=== PATIENT | female | born 1945 | race Caucasian/White ===

== ENCOUNTER 2021-10-29 11:04 | Outpatient (CLI) | payer OTHER, SELFPAY ==
--- OUTSIDE RECORDS SUMMARY | 2021-09-24 10:30 | XMS_ITS | Continuity of Care Document ---
:1945 Author Care Team Providers Name Role Phone CATERINA Park Attending Physician CATERINA Park Primary Care Physician Chief Complaint and Reason for Visit Chief Complaint Closed Head Injury Reason for Visit [id number] Health Concerns Concerns Review chart for current health concerns Allergies, Adverse Reactions, Alerts Allergen Type Severity Reaction Last Verified Status Updated Codeine Allergy Moderate nausea,vomi September 16, Yes Active tting 2021 Dextromethorphan Adverse Moderate diarrhea September 16, Yes Ac tive Reaction 2021 Guaifenesin Adverse Moderate diarrhea September 16, Yes Active Reaction 2021 Yellow Dye Adverse Moderate diarrhea September 16, Yes Active Reaction 2021 Social History Smoking Status Status Start Date End Date Date of Observat ion Never smoked tobacco September 16, 2021 1:42pm (finding) Observation Status Observation Response Date of Response Nonsmoker March 19, 2019 1:48pm Does not use illicit drugs March 1:48pm Does not drink alcohol March 19 1:48pm September 16, 2021 1:26 pm Additional Data Assigned Sex Female Problems Active Problems Medical Problem Onset Date Status Hypertension November 05, 2008 Active Hyperlipidemia April 28, 2011 Active Diverticulosis June 24, 2010 Active Plantar fasciitis December 21, 2012 Active Elevated liver enzymes 2020 Active Closed head injury 2021 Resolved S/P tonsillectomy and November 05, 2008 Active adenoidectomy Hx of appendectomy November 05, 2008 Active H/O lumbosacral spine surgery November 05, 2008 Active 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, 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 Hx of rotator cuff surgery 2019 Active Medications Medication Status Dose Units Route Directions Qty Days Start End Ins tructions Date Date Ascorbic Acid Active 500 MG OR Daily (Vitamin C) 500 Mg CAP Aspirin Active 1 TABLET PO Daily Atorvastatin Active 20 MG PO Bedtime September for Calcium , cholesterol 2021 1:25pm Calcium/Magne Active 1 EA PO Daily 1000 mg sium (Calcium calciu m, 400 & Magnesium mg mag 750-465 Mg) 1 Tab TAB Cholecalcifer Active 1000 UNIT OR Daily ol (Vitamin D3) 1,000 Unit CAP Hydrochloroth Active 25 MG PO Daily September iazide 2021 1:25pm Metoprolol Active 0.5 TAB PO Twice A Day September ta ke 12.5mg Tartrate , (1/2 tablet ) 2021 2 times per 1:25pm day Vitamin E Active 400 UNIT PO Daily Albuterol Disconti 2 PUFF INH Every 4 1 Februar Septem Sulfate nued Hours as y , dawit (Proair Hfa) needed 2016, 90 Mcg/Puff 3:34pm 2017 INH 8:51am Albuterol/Ipr Disconti 1 NEB NEB Once July atropium nued , 3rd, (Duoneb) 3 2016 2016 Mg/0.5 Mg NEB 12:02pm 12:08p m Ascorbic Acid Disconti 1000 MG PO Daily July (Vitamin C) nued , 1,000 Mg TAB 2013 8:28am Atenolol Disconti 25 MG PO Daily 90 Februar Septem (Tenormin) 25 nued y , adwit Mg TAB 2016, 4:15pm 2016 8:51am Atenolol Disconti 25 MG PO Daily April Februa (Tenormin) 25 nued , ry Mg TAB 2015, 10:13am 2016 4:15pm Atenolol Disconti 25 MG PO Daily 90 Februar Januar (Tenormin) 25 nued y 5th, y Mg TAB 2014, 12:23pm 2015 10:13a m Atenolol Disconti 25 MG PO Daily 90 Februar Februa (Tenormin) 25 nued y , ry Mg TAB 2013 08, 9:10am 2014 12:23p m Atenolol Disconti 25 MG PO Daily 90 Februar Februa (Tenormin) 25 nued y , ry Mg TAB 2012 10, 8:48am 2013 9:10am Atenolol Disconti 25 MG PO Daily Aprilua (Tenormin) 25 nued 26, ry Mg TAB 2011 04, 9:39am 2012 8:48am Atorvastatin Disconti 20 MG PO Bedtime January Calcium nued 15, , 2020 2021 12:49pm 1:25pm Atorvastatin Disconti 20 MG PO Bedtime Octobe Take 1 tablet Calcium nued er r daily for , 18, elevated 2020 2020 cholesterol 4:23pm 2:07pm Atorvastatin Disconti 20 MG PO Bedtime Septemberem T tomasa 1 tablet Calcium nued 4th, dawit daily for 2020, elevated 11:27am 2020 cholesterol 4:23pm Azithromycin Disconti 250-5 MG PO Daily January 50 0 mg x 1 nued 00 , day then 250 2018 2019 mg daily x 4 10:47am 2:36pm days Azithromycin Disconti 250 MG PO As Directed July em 2 TABS ON DAY (Zithromax nued 3rd, dawit ONE THEN 1 Z-Eddie) 250 Mg 2016, TAB DA ANGELA TAB 12:31pm 2016 DAYS 2-5 8:51am Azithromycin Disconti 250 MG [facility] (Zithromax nued er y ONE THEN 1 Z-Eddie) 250 Mg , , TAB DA ANGELA TAB 2015 2016 DAYS 2-5 11:05am 9:43am Cholecalcifer Disconti 1000 MG PO Daily ol (Vitamin nued y D) 400 Iu TAB 2016 9:43am Diclofenac Disconti 50 MG PO Three Times 60 Decembe Febr ua Sodium nued A Day as r 11, ry needed 2013 08, 3:12pm 2014 11:55a m Diphtheria/Te Disconti 0.5 ML IM Once Apriluar tanus/Acell nu, y Pertussis 2009, (Adacel) 0.5 2:07pm 2009 Ml INJ 2:13pm Fish Oil Disconti 1000 MG PO y 2015 9:33am Folic Acid Disconti 800 MCG PO Daily ed ry 2011 8:38am Hydrochloroth Disconti 25 MG PO Daily September iazide nued , 2021 11:31am 1:25pm Hydrochloroth Disconti 25 MG PO Daily 90 September iazide nued , 2020 10:47am 11:31a m Hydrochloroth Disconti 25 MG PO Daily 90 June iazide nued 2020 1:37pm 10:47a m Hydrochloroth Disconti 25 MG PO Daily 90 November iazide nued , 2019 1:35pm 1:37pm Hydrochloroth Disconti 25 MG PO Daily 90 August iazide nued 2019 10:11am 1:35pm Hydrochloroth Disconti 25 MG PO Daily 90 June iazide nued 2018 3:41pm 10:11a m Hydrochloroth Disconti 25 MG PO Daily 90 Februar June iazide nued y 2017 2:50pm 3:41pm Hydrochloroth Disconti 25 MG PO Daily 90 Februar Februa iazide nued y , ry 2016, 4:14pm 2017 2:50pm Hydrochloroth Disconti 25 MG PO Daily April Februa iazide nued , ry 2015, 10:13am 2016 4:14pm Hydrochloroth Disconti 25 MG PO Daily 90 Februar Januar iazide nued y , y 2014, 12:23pm 2015 10:13a m Hydrochloroth Disconti 25 MG PO Daily 90 Februar Februa iazide nued y , ry 2013 08, 9:10am 2014 12:23p m Hydrochloroth Disconti 25 MG PO Daily 90 Februar Februa iazide nued y , ry 2012 10, 8:48am 2013 9:10am Hydrochloroth Disconti 25 MG PO Daily 90 Februar Februa iazide nued y , ry 2011 04, 2:25pm 2012 8:48am Hydrochloroth Disconti 25 MG PO Daily 100 April Februa iazide nued , ry 2010 14, 10:21am 2011 2:25pm Hydrochloroth Disconti 25 MG PO Daily April iazide nued , 2009, 2:56pm 2010 10:21a m Hydrochloroth Disconti 12.5 MG PO Daily 100 April iazide nued , 2009, 2:07pm 2009 2:56pm Hydrochloroth Disconti 12.5 MG PO Daily October iazide nued , 2008, 11:06am 2009 2:07pm Hydrochloroth Disconti 12.5 MG PO Daily 100 uaoctober iazide nued y , 2008 3:24pm 11:06a m Hydrocodone-A Disconti 1 TAB PO Every 4 Febru a cetaminophen nued Hours as er ry (Vicodin) 5 needed , , Mg/300 Mg TAB 2013 2014 9:04am 11:55a m Metoprolol Disconti 0.5 TAB PO Twice A Day September take 12.5mg Tartrate nued , (1/2 tablet ) 2021 2021 2 times per 11:31am 1:25pm day Metoprolol Disconti 0.5 TAB PO Twice A Day September take 12.5mg Tartrate nued , (1/2 tablet ) 2020 2021 2 times per 10:47am 11:31a day m Metoprolol Disconti 0.5 TAB PO Twice A Day June take 12.5mg Tartrate nued , (1/2 tablet ) 2020 2020 2 times per 2:30pm 10:47a day m Metoprolol Disconti 0.5 TAB PO Twice A Day November take 12.5mg Tartrate nued , , (1/2 tablet ) 2019 2020 2 times per 1:35pm 2:30pm day Metoprolol Disconti 0.5 TAB PO Twice A Day August take 12.5mg Tartrate nued , , (1/2 tablet ) 2019 2019 2 times per 10:11am 1:35pm day Metoprolol Disconti 0.5 TAB PO Twice A Day June take 12.5mg Tartrate nued , (1/2 tablet ) 2018 2019 2 times per 3:41pm 10:11a day m Metoprolol Disconti 0.5 TAB PO Twice A Day 90 Februar Lalit h take 12.5mg Tartrate nued y , (1/2 tabl et ) 2017 2018 2 times per 2:50pm 3:41pm day Metoprolol Disconti 0.5 TAB PO Twice A Day 90 Febr ua take 12.5mg Tartrate nued er ry (1/2 tablet ) , 2 times per 2016 2017 day 9:29am 2:50pm Metoprolol Disconti 0.5 TAB PO Twice A Day November m take 12.5mg Tartrate nued (1/2 tablet ) 2016, 2 times per 4:42pm 2016 day 9:29am Pneumococcal Disconti 0.5 ML IM Once Aprilr Polyvalent nued , y Vaccine 2015, (Prevnar 13) 9:59am 2015 0.5 Ml INJ 10:03a m Potassium Disconti Februa Glucon nued ry 2012 8:13am Prednisone Disconti 20 MG PO Daily 5 January nued 2017 10:47am 2:36pm Prednisone Disconti 20 MG PO Twice A Day 10 July nued , dawit 2016, 12:31pm 2016 8:51am Prednisone Disconti 20 MG PO Daily 5 July nued y 2016 3:34pm 11:44a m Prednisone Disconti 20 MG PO Twice A Day 10 Apru ar nued er y 2015 11:05am 9:43am Simvastatin Disconti 1 TABLET PO Bedtime September (Zocor) 40 Mg nued , TAB 2020 2020 10:47am 11:27a m Simvastatin Disconti 1 TABLET PO Bedtime June (Zocor) 40 Mg nued , , TAB 2020 2020 12:38pm 10:47a m Simvastatin Disconti 1 TABLET PO Bedtime August (Zocor) 40 Mg nued , TAB 2019 2020 2:07pm 12:38p m Simvastatin Disconti 1 TABLET PO Bedtime July (Zocor) 40 Mg nued , TAB 2018 2019 11:10am 2:07pm Simvastatin Disconti 1 TABLET PO Bedtime 90 uar July (Zocor) 40 Mg nued y , , TAB 2017 2018 2:50pm 11:10a m Simvastatin Disconti 1 TABLET PO Bedtime July Februa (Zocor) 40 Mg nued , ry TAB 2016, 8:33am 2017 2:50pm Simvastatin Disconti 1 TABLET PO Bedtime April (Zocor) 40 Mg nued , , TAB 2015 2016 10:13am 8:33am Simvastatin Disconti 1 TABLET PO Bedtime 90 Februar Januar (Zocor) 40 Mg nued y , y TAB 2014, 12:23pm 2015 10:13a m Simvastatin Disconti 1 TABLET PO Bedtime 90 Februar Februa (Zocor) 40 Mg nued y 11, ry TAB 2013 5th, 7:29pm 2014 12:23p m Simvastatin Disconti 1 TABLET PO Bedtime April Februa (Zocor) 40 Mg nued , ry TAB 2013 11, 12:31pm 2013 7:29pm Simvastatin Disconti 1 TABLET PO Bedtime 90 Februar Januar (Zocor) 40 Mg nued y , y TAB 2012, 8:48am 2013 12:31p m Simvastatin Disconti 1 TABLET PO Bedtime 90 Februar Februa (Zocor) 40 Mg nued y 14, ry TAB 2011 04, 2:25pm 2012 8:48am Simvastatin Disconti 1 TABLET PO Bedtime 90 April Februa (Zocor) 40 Mg nued , ry TAB 2010 14, 10:21am 2011 2:25pm Simvastatin Disconti 1 TABLET PO Bedtime 30 Februar Januar (Zocor) 40 Mg nued y 9, y TAB 2009, 12:10pm 2010 10:21a m Immunizations Immunization Event Date Not Given 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 Yarns Lot Vac cine Reason Number Number Informatio n Statement (VIS) Deta il COVID-19 ModernMay 04 MODERNA [id number] 2020 COVID-19 Moderna June 19 MODERNA [id number] 2020 Herpes Zoster September 152010 Influenza December 022009 Influenza January 042011 Influenza January 032015 Influenza January 042017 Prevnar Adult April 03 ARACELY [id number] 2015 Pneumovax Adult April 102009 Shingrix January 012017 Shingrix April 042018 Tetanus/Diptheri February 01 a 1997 Tdap April 03 sanofipasteur [id number] (adolescent/adul 2009 t) Tdap January 02 [id number] (adolescent/adul 2011 t) Procedures Procedure Date Performed Status Future Lab Clinic September 01, 2021 completed LIPID PANEL September 13, 2021 completed COMPREHEN METABOLIC PANEL September 13, 2021 completed Relevant Diagnostic Tests and/or Laboratory Data Laboratory Results Test Date/Time Result Interpretation Reference Result Comment Performing Site Range Random September 13 60-115 [facility] Glucose 2021 [address] [facility] 10:27am [facility] [address] Blood Urea September 13 7-30 [facility] Nitrogen 2021 1999 [facility] 10:27am [facility] [address] Creatinine September 13, 0.6 0.5-1.5 [facility] 2021 [address] [facility] 10:27am [facility] [address] Estimated September 13, Patient [facility] Creatinine 2021 height/weight 1999 [facility] Clearance 10:27am data not [facility] [address] available Sodium Level September 13, 138 135-149 [facility] 2021 1999 [facility] 10:27am [facility] [address] Potassium September 13, 4.1 3.6-5.1 [facility] Level 2021 1999 [facility] 10:27am [facility] [address] Chloride September 13, 98 96-114 [facility] Level 2021 1999 [facility] 10:27am [facility] [address] Carbon September 13, 32 20-32 [facility] Dioxide 2021 1999 [facility] Level 10:27am [facility] [address] Calcium September 13, 9.6 8.4-10.6 [facility] Level 2021 1999 [facility] 10:27am [facility] [address] Cholesterol Kellie 13th, 171 90-199 [facility] Lab Level 2021 1999 [facility] 10:27am [place] [address] Triglyceride September 13, 128 40-149 [facility] s Level 2021 1999 [facility] 10:27am [facility] [address] Total September 13, 6.6 6.0-8.3 The use of [facility] Protein 2021 patti Daniels [address] [facility] 10:27am bone [place] [address] stimulant used to treat thrombocytopen ia and aplastic anemia, interferes with this measurement of total protein. A 5% bias has been observed. Albumin September 13, 3.9 3.3-5.0 [facility] 2021 1999 [facility] 10:27am [place] [address] Total September 13, 1.4 0.1-1.5 [facility] Bilirubin 2021 1999 [facility] 10:27am [facility] [address] Aspartate September 13, 29 12-35 [facility] Amino Transf [address] (AST/SGOT) 10:27am [facility] [address] Alanine September 13, 20 4-35 [facility] Aminotransfe [address]ase 10:27am [facility] [address] (ALT/SGPT) Alkaline September 13, 65 40-150 [facility] Phosphatase 2021 1999 [facility] 10:27am [facility] [address] LDL September 13, 70 <100 [facility] Cholesterol 2021 [address] [facility] 10:27am [facility] [address] HDL September 13, 75 >=50 [facility] Cholesterol 2021 [address] [facility] 10:27am [facility] [address] White Blood September 13, 5.9 4.5-11.0 [facility] [place] Count [address] [place] [address] West 10:21am [place] [address] Red Blood September 13, 5.03 4.00-5.20 [facility] [place] Count [address] [place] [address] 10:21am [facility] [address] Hemoglobin September 13, 14.2 12.0-16.0 [facility] [place] [address] [place] [address] West 10:21am [place] [address] Hematocrit September 13, 42.8 33-51 [facility] [place] [address] 10:21am [facility] [address] Mean September 13, 85 80-100 [facility] [address] Volume 10:21am [facility] [address] Mean September 13, 28 26-34 [facility] [address] [place] Hemoglobin 10:21am [facility] [address] Mean September 13, 33 32-36 [facility] 2021 [address] [facility] Hemoglobin 10:21am [facility] [address] Concent Platelet September 13, 300 140-440 [facility] Count 2021 [address] [facility] 10:21am [facility] [address] Vital Signs Vital Reading Result Reference Range Collection Date/ Time Height 64.570 [in_i] September 16, 2021 1:01pm Height 164 cm September 16, 2021 1:01pm Weight 185.00 [lb_av] September 16, 2021 1:01pm Weight 83.003680 kg September 16, 2021 1:01pm Body Temperature 97.7 [degF] September 16, 2021 1:01pm Body Temperature 36.5 Solange September 16, 2021 1:01pm BP Systolic 118 mm[Hg] September 16, 2021 1:01pm BP Diastolic 62 mm[Hg] September 16, 2021 1:01pm Heart Rate 70 /min September 16, 2021 1:01pm Respiratory rate 16 /min September 16, 2021 1:01pm Body surface area 1.90 m2 September 16 1:01pm BMI (Body Mass Index) 31.2 kg/m2 September 16, 2021 1:01pm Advance Directives Advance Directive Response Recorded Date/Time Does Pt have Health Care No April 28 016 10:12am Directive? Has patient completed a Yes September 16, 2021 1:42pm Health Care Directive? Insurance Providers Guarantor Lilliam Dos Santos Address [address] [facility] [address] Contact Info. Home Phone: Payer Policy Id Coverage Id Subscriber's Subscriber Id Effective E xpiration Name Date Date [employer] [id number] Lilliam Dos Santos Choice Encounters Encounter Location(s) Arrival/Admit Date Discharge/Depart Date Provider(s) Registered Clinics September 16, 2021 [facility] 12:45pm Maria Del Rosario DIGGS Office Visit [facility] September 16, 2021 [facility] 12:45pm Maria Del Rosario DIGGS Office Visit [facility] September 13, 2021 [facility] 10:30am Maria Del Rosario DIGGS Registered [place] September 13, 2021 [facility] 10:20am Maria Del Rosario DIGGS Recent Diagnosis Onset Date Assessments 1. Completed annual Medicare wellness visit today 2. Physical exam Reviewed pre visit labs including CBC, CMP, lipid panel, all unremarkableReviewed her Woman's preventative wellness plan.She has a mammogram [id number] with bone density scan, also takes calcium and vitamin-DPolitely declined any further colorectal screening at this time Up-to-date with immunizations 2. Hypertension. Continue with metoprolol and hydrochlorothiazide is prescribed. Follow up annually. Reviewed pre visit labs including a unremarkable CMP 3. Elevated liver function enzymes. Resolved.Reviewed recent CMP, showing continued resolution of LFT elevation. 4. Hyperlipidemia. Lipids are excellent. Reviewed pre visit labs.Plan: Continue with atorvastatin as prescribed. Follow up in 1 year. Plan of Treatment Instructions from visit on: 09/16/21 Please follow the provider's instructions as discussed during your visit. Instructions from visit on: 09/16/21 Please follow the providers instructions as discussed during your visit and follow preventative care plan. Future Tests Future scheduled test information is unavailable Pending Tests Pending diagnostic test information is unavailable Future Visits Future appointment information is unavailable Referrals to Other Providers Reason for Referral Start Provider Provider Contact Provider Address Referral Date Information [facility] Work Phone: GAURI CRAMER CAITLIN Mix PA-C [id number] [facility] [phone] Future Procedures Procedure Name Scheduled Date SCARLET Bilat Mammo Scrn SCARLET Bilat Mammo Scrn Future Medications Future medication information is unavailable Patient Instructions See Additional Instructions Goals Ambulatory Goals Reach or maintain optimal well being.
--- NOTE | 2021-10-29 11:30 | CRLHL7_ITS ---
For Patients: As a result of the Century Cures Act, medical imaging exams and procedure reports are released immediately into your electronic medical record. You may view this report before your referring provider. If you have questions, please contact your health care provider. BILATERAL MAMMOGRAM WITH COMPUTER-AIDED DETECTION AND TOMOSYNTHESIS TECHNIQUE: CC and MLO views were obtained. These mammographic images have been obtained using full-field digital technique. These mammographic images were interpreted with the benefit of computer-aided detection. Breast Tomosynthesis was used in this interpretation. COMPARISON FILM: 09/20/19, 05/18/17, 05/21/15 FINDINGS: There are scattered areas of fibroglandular density IMPRESSION: There is no radiographic evidence for malignancy. ASSESSMENT: BI-RADS Category 1: Negative RECOMMENDATION: Routine screening mammogram in 1 year. A lay language report of this examination will be provided to the patient. Johnathan Watson M.D. Diagnostic Radiologist [email or web address] TATY/Dictated by: Johnathan Watson MD @ 11/01/2021 9:18:00 AM (Electronically Signed)
== END 2021-10-29 11:05 | disposition home or self-care (01) ==
LOC: MAMMO 11:09
PROVIDERS: PCP Physician Assistant Medical; Visit Provider Physician Assistant Medical
DX: Z12.31 Encounter for screening mammogram for malignant neoplasm of breast (principal)
CPT/HCPCS: 77063; 77067

== ENCOUNTER 2022-11-09 08:31 | Outpatient (CLI) | payer OTHER, SELFPAY | END 2022-11-09 08:32 | disposition home or self-care (01) | LOC: NFLDREF 11-10 12:13 | PROVIDERS: PCP Physician Assistant Medical; Referring Provider Physician Assistant Medical; Visit Provider Physician Assistant Medical | DX: Z00.00 Encounter for general adult medical examination without abnormal findings (principal); I10 Essential (primary) hypertension; E78.5 Hyperlipidemia, unspecified; R74.8 Abnormal levels of other serum enzymes | CPT/HCPCS: 80061; 80076; 82947 ==

== ENCOUNTER 2022-12-07 13:17 | Outpatient (CLI) | payer OTHER, SELFPAY ==
--- NOTE | 2022-12-07 14:00 | CRLHL7_ITS ---
For Patients: As a result of the Century Cures Act, medical imaging exams and procedure reports are released immediately into your electronic medical record. You may view this report before your referring provider. If you have questions, please contact your health care provider. DXA BONE MINERAL DENSITY STUDY Current height (in): 66.0. Weight (lb): 190.0. Menopause age: 59. Ethnicity: White. Reason for exam: Osteopenia. 1. Have you had a previous hip or vertebral fracture? No. 2. Have you had any fractures during your adult life which did not result from significant trauma (e.g., auto accident)? No. 3. Did either of your parents have a hip fracture? No. 4. Do you smoke? No. 5. Have you ever taken Glucocorticoids? No. 6. Do you have rheumatoid arthritis? No. 7. Do you have secondary osteoporosis? No. 8. Do you drink 3 or more alcoholic drinks per day? No. 9. Are you being treated for osteoporosis? No. 10. Have you ever taken any of the following medications: Actonel, Evista, Fosamax, Miacalcin, Reclast, Boniva, Forteo, HRT (i.e. estrogen/hormone therapy), Protelos, Prolia, Vitamin D, Calcium, other ??? please specify. ANSWER: Yes, vitamin D, calcium. 11. Do you have any of the following medical conditions: Anorexia or bulimia, asthma or emphysema, end stage renal disease, hyperparathyroidism, any seizure disorders, cancer, inflammatory bowel diseases, hysterectomy, other ??? please specify. ANSWER: No. 12. What was your maximum height (inches)? 66. 13. Do you perform weight bearing exercise regularly? No. 14. Do you regularly consume dairy products? Yes. 15. Do you drink caffeinated beverages? Yes. 16. At what age did your period start? 11. 17. Are you premenopausal? No. 18. How many full term pregnancies have you had? 5. 19. Have you ever missed your period for more than 6 months in a row (not including or menopause)? No. TECHNIQUE: Bone mineral density study was performed using the [employer]. FINDINGS: The results of the study expressed as bone mineral density (BMD) are as follows: Lumbar spine L1 to L4: BMD: 1.186 g/cm2. T-score: 1.3. Z-score: 3.9. Neck Left: BMD: 0.985 g/cm2. T-score: 1.2. Z-score: 3.5. Right: BMD: 0.676 g/cm2. T-score: -1.6. Z-score: 0.7. Total Left: BMD: 0.936 g/cm2. T-score: -0.0. Z-score: 1.9. Right: BMD: 0.796 g/cm2. T-score: -1.2. Z-score: 0.8. IMPRESSION: Osteopenia. *Comparison exams done prior to 09/2019 were performed on different unit, UbiCast. COMPARISON: Compared with scan of 09/09/2020, the bone mineral density has increased by 1.1 percent at the spine and decreased by 1.8 percent at the hip. FRAX 10-year Fracture Risk Major Osteoporotic Fracture: 13 percent Hip Fracture: 2.8 percent Reported Risk Factors: [place] () Neck BMD = 0.676, BMI = 30.7 Johnathan Watson M.D. Diagnostic Radiologist [email or web address] Transcribed: 10:25 am DW/Dictated by: Johnathan Watson MD @ 12/08/2022 9:15:00 AM (Electronically Signed)
== END 2022-12-07 13:18 | disposition home or self-care (01) ==
LOC: RAD 13:18
PROVIDERS: PCP Physician Assistant Medical; Visit Provider Physician Assistant Medical
DX: M85.80 Other specified disorders of bone density and structure, unspecified site (principal); M85.88 Other specified disorders of bone density and structure, other site
CPT/HCPCS: 77080

== ENCOUNTER 2023-10-25 11:02 | Outpatient (CLI) | payer OTHER, SELFPAY ==
--- NOTE | 2023-10-25 11:30 | CRLHL7_ITS ---
For Patients: As a result of the Century Cures Act, medical imaging exams and procedure reports are released immediately into your electronic medical record. You may view this report before your referring provider. If you have questions, please contact your health care provider. BILATERAL SCREENING MAMMOGRAM WITH COMPUTER-AIDED DETECTION AND TOMOSYNTHESIS TECHNIQUE: CC and MLO views were obtained. These mammographic images have been obtained using full-field digital technique. These mammographic images were interpreted with the benefit of computer-aided detection. Breast tomosynthesis was used in this interpretation. COMPARISON FILM: 10/29/21, 09/20/19, 05/18/17. FINDINGS: There are scattered areas of fibroglandular density. IMPRESSION: There is no radiographic evidence for malignancy. ASSESSMENT: BI-RADS Category 1: Negative RECOMMENDATION: Routine screening mammogram in 1 year. A lay language report of this examination will be provided to the patient. JOHNATHAN CHOWDHURY M.D. Diagnostic Radiologist [email or web address] Transcribed: 2:[address]/Dictated by: Johnathan Chowdhury MD @ 10/25/2023 12:53:00 PM (Electronically Signed)
== END 2023-10-25 11:03 | disposition home or self-care (01) ==
LOC: MAMMO 11:03
PROVIDERS: PCP Physician Assistant Medical; Visit Provider Physician Assistant Medical
DX: Z12.31 Encounter for screening mammogram for malignant neoplasm of breast (principal)
CPT/HCPCS: 77063; 77067

== ENCOUNTER 2023-11-30 09:45 | Outpatient (CLI) | payer OTHER, SELFPAY | END 2023-11-30 09:46 | disposition home or self-care (01) | LOC: NFLDREF 12-02 14:52 | PROVIDERS: PCP Physician Assistant Medical; Referring Provider Physician Assistant Medical; Visit Provider Physician Assistant Medical | DX: I10 Essential (primary) hypertension (principal); E78.5 Hyperlipidemia, unspecified; R74.8 Abnormal levels of other serum enzymes | CPT/HCPCS: 80053; 80061 ==

== ENCOUNTER 2023-12-06 12:10 | Outpatient (CLI) | payer OTHER, SELFPAY | END 2023-12-06 12:11 | disposition home or self-care (01) | LOC: NFLDREF 12-10 14:54 | PROVIDERS: PCP Physician Assistant Medical; Referring Provider Physician Assistant Medical; Visit Provider Physician Assistant Medical | DX: R35.0 Frequency of micturition (principal) | CPT/HCPCS: 87086 ==

== ENCOUNTER 2024-01-15 16:41 | Outpatient (CLI) | payer OTHER, SELFPAY | END 2024-01-15 16:42 | disposition home or self-care (01) | PROVIDERS: PCP Physician Assistant Medical; Referring Provider Physician Assistant Medical; Visit Provider Physician Assistant Medical | DX: Z01.818 Encounter for other preprocedural examination (principal); R53.83 Other fatigue; E87.1 Hypo-osmolality and hyponatremia | CPT/HCPCS: 87086 ==

== ENCOUNTER 2024-01-29 06:03 | Day surgery (SDC) | payer OTHER, SELFPAY ==
[2024-01-29 06:25] VITALS: BMI 32.5
[2024-01-29 06:51] VITALS: BP 144/73; PULSE 70; RESP 16; TEMP 36.9; O2SAT 95
[2024-01-29] MEDS: SODIUM CHLORIDE 0.9 % (FLUSH) 10 ML SYRINGE IVF (06:52)
--- NOTE | 2024-01-29 07:21 | W.PM.H&PU ---
History & Physical Update History & Physical Update H&P Reviewed and patient assessed: No changes noted
--- NOTE | 2024-01-29 07:32 | PM.GSPRC ---
Operative Note Date of procedure: 01/29/24 Pre-op diagnosis: 1. Symptomatic right inguinal hernia. Post-op diagnosis: 1. Right indirect inguinal hernia with weak inguinal floor. Type of Procedure: 1. Open right inguinal hernia repair with mesh Indications: 78-year-old female was seen in clinic for evaluation of right inguinal hernia. Prior to patient's presentation she developed severe pain in the right lower abdomen. The pain was getting worse and patient was brought to the emergency room. At the outside hospital she had an abdominal CT that showed right inguinal hernia containing fat with small amount of ascites. The hernia was reduced in the emergency room and patient was discharged. Patient has been wearing abdominal binder since that visit. She was tolerating regular diet and having regular bowel movements. On clinical exam patient had palpable small right inguinal bulge with the patient standing up. There was tenderness to palpation. Given patient's clinical history and her CT findings, an open inguinal hernia repair with mesh was recommended. The procedure was discussed in detail. The risks associated procedure including infection, bleeding, injury to preperitoneal organs, and hernia recurrence were all discussed with the patient, and she agreed to proceed. Procedure Description: After discussing the risks and benefits of the procedure, the patient signed informed consent.? The operative site was marked and the patient was brought to the operating room and placed on the operating table in supine position.? Care was taken to pad the patient's pressure points.?? The patient was then sedated by anesthesia.?? The operative site was then prepped and draped in the usual sterile fashion.? A time-out was then performed. Surgical site was prepped and draped in sterile fashion. Site of the incision was marked with a marking pen and local anesthetic was injected. An oblique incision was made just above and medial to the right inguinal ligament. Subcutaneous tissue was dissected to external obliques. Superficial subcutaneous vascular branches were small. Those were controlled with cautery and divided. Small incision was made through the external oblique aponeurosis with scalpel. I then used Metzenbaum scissors to dissect under external obliques and extend my incision. Mosquito clamps were placed on the edges of external oblique exposing the inguinal floor. The right Ilioinguinal nerve was identified and was going through the plain of dissection. The nerve was divided proximally and distally and a 3 cm segment of it was excised. This was not sent to pathology. I then identified the hernia sac. The round ligament was thin and small. This was divided with cautery. Bleeding from the round ligament was controlled with cautery. Preperitoneal fat was dissected off hernia sac. The hernia sac was clearly mobilized. The inguinal floor was weak. The indirect hernia sac was incised and examined from the inside. The wall of the hernia sac was fatty but no intra-abdominal structures were incarcerated in the hernia sac. The fatty hernia sac was then excised with cautery, and closed with a running locking 2-0 Vicryl suture. This was then pushed into preperitoneal space through the internal ring. Surgical field was examined for bleeding and hemostasis was achieved with cautery and Vicryl ties. A Bard mesh onlay was also used for hernia repair. The mesh onlay was sutured in place with interrupted 0-0 Neurolon sutures to the conjoint tendon medially and shelving edge laterally, pubic tubercle inferiorly. No bleeding was seen at the end of the case. External oblique aponeurosis was closed with a running 3-0 Vicryl. Additional local anesthetic was injected into subcutaneous tissues. Tiesha's fascia and subcutaneous tissue was re-approximated with interrupted Vicryl stitches. Skin incision was closed with 4-0 Monocryl subcuticular stitch. Steri strips and sterile dressing were applied over incision. All counts were correct at the end of the case. Patient tolerated this procedure well and was transferred to PACU in stable condition. Findings: Week right inguinal floor with indirect hernia sac. The hernia sac wall was fatty with no intra-abdominal structures incarcerated in the hernia sac. Anesthesia: MAC and local Surgeon: Henry Stevens MD Estimated blood loss (mL): 5 Condition: stable Disposition: same day
[2024-01-29] MEDS: CEFAZOLIN 2 GM INJ IVP (07:45)
[2024-01-29] MEDS: BUPIVACAINE 0.25% 30 ML INJECTION (07:56)
[2024-01-29] MEDS: LIDOCAINE 1%-EPI 1:100,000 20 ML INFILTRATI (07:56)
[2024-01-29 08:46] VITALS: BP 120/74; PULSE 70; RESP 16; TEMP 36.6; O2SAT 99
--- NOTE | 2024-01-29 08:49 | W.ANESCHARGE ---
Anesthesia Charges Start Date/Time Anesthesia Start Date: 01/29/24 Anesthesia Start Time: 07:32 Stop Date/Time Anesthesia Stop Date: 01/29/24 Anesthesia Stop Time: 08:48 Summary Extremes of Age - Over 70 or under 1: [facility]
[2024-01-29 09:02] VITALS: BP 91/53; PULSE 73; RESP 16; O2SAT 95
[2024-01-29 09:15] VITALS: BP 101/64; PULSE 72; RESP 16; O2SAT 95
[2024-01-29 10:00] VITALS: BP 129/95; PULSE 76; RESP 16; O2SAT 95
[2024-01-29] MEDS: HYDROCODONE-ACETAMIN 5-325 MG 1 TAB PO (10:06)
== END 2024-01-29 10:38 | disposition home or self-care (01) ==
PROVIDERS: PCP Physician Assistant Medical; Visit Provider Surgery
PROC: (CPT 49505; principal; 2024-01-29 07:30)
DX: K40.90 Unilateral inguinal hernia, without obstruction or gangrene, not specified as recurrent (principal)
CPT/HCPCS: 49505; 00830; 99100; A9270; C1781; J0665; J0690; J1100; J2405; J2704; J3010

== ENCOUNTER 2024-10-14 09:19 | Outpatient (CLI) | payer MEDICARE, SELFPAY | END 2024-10-14 09:20 | disposition home or self-care (01) | LOC: NFLDREF 10-16 03:54 | PROVIDERS: PCP Physician Assistant Medical; Referring Provider Physician Assistant Medical; Visit Provider Physician Assistant Medical | DX: E78.5 Hyperlipidemia, unspecified (principal); I10 Essential (primary) hypertension; R35.0 Frequency of micturition; R74.8 Abnormal levels of other serum enzymes | CPT/HCPCS: 80053; 80061; 82043; 82570 ==

== ENCOUNTER 2024-10-17 12:15 | Outpatient (CLI) | payer MEDICARE, SELFPAY | END 2024-10-17 12:16 | disposition home or self-care (01) | LOC: NFLDREF 10-18 11:00 | PROVIDERS: PCP Physician Assistant Medical; Referring Provider Physician Assistant Medical; Visit Provider Physician Assistant Medical | DX: R35.0 Frequency of micturition (principal) | CPT/HCPCS: 87086 ==

== ENCOUNTER 2024-10-31 14:31 | Outpatient (CLI) | payer MEDICARE, SELFPAY ==
--- NOTE | 2024-10-31 15:00 | CRLHL7_ITS ---
For Patients: As a result of the Century Cures Act, medical imaging exams and procedure reports are released immediately into your electronic medical record. You may view this report before your referring provider. If you have questions, please contact your health care provider. DXA BONE MINERAL DENSITY STUDY Current height (in): 66. Weight (lb): 190. Menopause age: 59. Ethnicity: White. 1. Have you had a previous hip or vertebral fracture? No. 2. Have you had any fractures during your adult life which did not result from significant trauma (e.g., auto accident)? No. 3. Did either of your parents have a hip fracture? No. 4. Do you smoke? No. 5. Have you ever taken Glucocorticoids? No. 6. Do you have rheumatoid arthritis? No. 7. Do you have secondary osteoporosis? No. 8. Do you drink 3 or more alcoholic drinks per day? No. 9. Are you being treated for osteoporosis? No. 10. Have you ever taken any of the following medications: Actonel, Evista, Fosamax, Miacalcin, Reclast, Boniva, Forteo, HRT (i.e. estrogen/hormone therapy), Protelos, Prolia, Vitamin D, Calcium, other ??? please specify. ANSWER: Yes, Vitamin D, and Calcium. 11. Do you have any of the following medical conditions: Anorexia or bulimia, asthma or emphysema, end stage renal disease, hyperparathyroidism, any seizure disorders, cancer, inflammatory bowel diseases, hysterectomy, other ??? please specify. ANSWER: No. 12. What was your maximum height (inches)? 66. 13. Do you perform weight bearing exercise regularly? No. 14. Do you regularly consume dairy products? Yes. 15. Do you drink caffeinated beverages? No. 16. At what age did your period start? 11. 17. Are you premenopausal? No. 18. How many full term pregnancies have you had? 5. 19. Have you ever missed your period for more than 6 months in a row (not including or menopause)? No. TECHNIQUE: Bone mineral density study was performed using the [employer]. FINDINGS: The results of the study expressed as bone mineral density (BMD) are as follows: Lumbar spine L1 to L4: BMD: 1.201 g/cm2. T-score: 1.4. Z-score: 4.1. Neck Left: BMD: 0.993 g/cm2. T-score: 1.3. Z-score: 3.6. Right: BMD: 0.658 g/cm2. T-score: -1.7. Z-score: 0.6. Total Left: BMD: 0.902 g/cm2. T-score: -0.3. Z-score: 1.8. Right: BMD: 0.747 g/cm2. T-score: 1.6. Z-score: 0.5. IMPRESSION: Osteopenia. COMPARISON: Compared with scan of 12/07/2022, the bone mineral density has increased by 1.3 percent at the spine and decreased by 4.8 percent at the hip. Compared with scan of 09/09/2020, the bone mineral density has increased by 1.1 percent at the spine and decreased by 1.8 percent at the hip. FRAX 10-year Fracture Risk Major Osteoporotic Fracture: 14 percent Hip Fracture: 3.6 percent Reported Risk Factors: [place] () Neck BMD=0.658, BMI=30.7. Rachel Lepe M.D. Diagnostic Radiologist [email or web address] [email or web address] DW/Dictated by: Rachel Lepe MD @ 11/03/2024 6:57:00 AM (Electronically Signed)
== END 2024-10-31 14:32 | disposition home or self-care (01) ==
LOC: RAD 14:32
PROVIDERS: PCP Physician Assistant Medical; Visit Provider Physician Assistant Medical
DX: Z13.820 Encounter for screening for osteoporosis (principal); M85.89 Other specified disorders of bone density and structure, multiple sites; Z78.0 Asymptomatic menopausal state
CPT/HCPCS: 77080

== ENCOUNTER 2024-12-12 13:49 | Outpatient (CLI) | payer MEDICARE, SELFPAY | END 2024-12-12 13:50 | disposition home or self-care (01) | LOC: LKVREF 13:50 | PROVIDERS: PCP Physician Assistant Medical | DX: R10.9 Unspecified abdominal pain (principal) | CPT/HCPCS: 80076 ==